=== PATIENT | male | born 1960 | race Caucasian/White ===

== ENCOUNTER 2019-05-20 23:31 | Emergency (ER) | payer BC ==
[~2019-05-20] VITALS: Ht 182.9 cm; Wt 104.0 kg
[~2019-05-20 23:31] MED LIST: APIX5TAB3 PO; LISI10TA4 PO; METO50TA17 PO
[2019-05-21] MEDS ORDERED: LIDOcaine 2% 10ml TOPICAL JELLY (Urojet) MM ONE (00:05)
--- NOTE | 2019-05-21 00:15 | NUR ---
Machado catherter placed using urojet and 18 fr coude, no issues with insertion, draining to gravity
[2019-05-21 01:30] VITALS: BP 128/78
== END 2019-05-21 01:33 | disposition home or self-care (01) ==
LOC: ER 23:32
DX: R31.9 Hematuria, unspecified (principal); R33.9 Retention of urine, unspecified; N40.0 Benign prostatic hyperplasia without lower urinary tract symptoms; Z98.890 Other specified postprocedural states; Z88.0 Allergy status to penicillin; Z79.899 Other long term (current) drug therapy
CPT/HCPCS: 51702; 99284

== ENCOUNTER 2019-05-21 04:02 | Emergency (ER) | payer BC ==
[~2019-05-21] VITALS: Ht 182.9 cm; Wt 104.5 kg
--- NOTE | 2019-05-21 04:25 | NUR ---
D/C PT EXISTING 18 VIET[place]ESE COUDE GAVIRIA ORDERED , ONCE BLADDER IRRIGATION COULD NOT BE INITIATED DUE TO [employer] CLOT FORMATION . GAVIRIA BAG WITH BRIGHT RED BLOOD WITH CLOTS 10ML OF FLUID REMOVED FROM [place] . ATTEMPTED TO PLACE A THREE WAY GAVIRIA FOR CBI 20 VIETNAMESE WITHOUT SUCCESS. ONCE INSERTED NO DRAINAGE OR IRRIGATION OCCURING WHEN REMOVING THE 20 VI[place]ESE, MULTIPLE LARGE STRINGY CLOTS REMOVED FROM THE TIP OF THE 20 VIET[place]ESE GAVIRIA . MD AWARE . WILL REATTEMPT GAVIRIA PLACEMENT ONCE PATIENT CAN BE MEDICATED FOR PAIN AND DISCOMFORT
[2019-05-21] MEDS ORDERED: fentaNYL/PF 50MCG/1 ML 2ML syringe IM ONE (04:30)
[2019-05-21] MEDS ORDERED: LIDOcaine 2% 10ml TOPICAL JELLY (Urojet) MM ONE (04:35)
[2019-05-21 05:16] LABS: BASOPHILS # (AUTO) 0.1 X10'3 (0-0.2); EOSINOPHILS # (AUTO) 0.1 X10'3 (0-0.9)
[2019-05-21 05:19] LABS: BASOPHILS % (AUTO) 0.5 % (0-1); EOSINOPHILS % (AUTO) 0.4 % (0-6); HEMATOCRIT 34.6 % (42.0-52.0); LYMPHOCYTES # (AUTO) 2.2 X10'3 (1.1-4.8); LYMPHOCYTES % (AUTO) 14.4 % (21-51); MEAN CORPUSCULAR HEMOGLOBIN 32.5 PG (27.0-31.0); MEAN CORPUSCULAR HGB CONC 34.8 g/dL (33.0-36.5); MEAN CORPUSCULAR VOLUME 93.2 FL (78-98); MEAN PLATELET VOLUME 6.2 FL (7.4-10.4); MONOCYTES # (AUTO) 0.5 X10'3 (0-0.9); MONOCYTES % (AUTO) 3.5 % (2-12); NEUTROPHILS # (AUTO) 12.1 X10'3 (1.8-7.7); NEUTROPHILS % (AUTO) 81.2 % (42-75); PLATELET COUNT 499 X10'3 (140-440); RED BLOOD COUNT 3.71 X10'6 (4.70-6.10); RED CELL DISTRIBUTION WIDTH 13.3 % (11.5-14.5); WHITE BLOOD COUNT 14.9 X10'3 (4.5-11.0)
[2019-05-21 05:29] LABS: ALANINE AMINOTRANSFERASE 25 U/L (12-78); ALBUMIN 3.6 G/DL (3.4-5.0); ALKALINE PHOSPHATASE 84 IU/L (46-116); ANION GAP 13 (8-16); ASPARTATE AMINO TRANSFERASE 17 U/L (10-37); BILIRUBIN,TOTAL 0.5 MG/DL (0.1-1.0); BLOOD UREA NITROGEN 26 MG/DL (7-18); BUN/CREATININE RATIO 14.5 (5.4-32.0); CALCIUM 9.1 MG/DL (8.5-10.1); CHLORIDE 104 MMOL/L (99-107); CREATININE 1.79 MG/DL (0.60-1.10); GLUCOSE 129 MG/DL (70-104); POTASSIUM 4.7 MMOL/L (3.5-5.1); SODIUM 137 MMOL/L (135-145); TOTAL CARBON DIOXIDE 20.2 MMOL/L (24-32); TOTAL PROTEIN 7.2 G/DL (6.4-8.2); eGFR 39 ML/MIN
--- NOTE | 2019-05-21 05:37 | NUR ---
DR ARTEAGA AT BEDSIDE QUESTIONING PT ABUT HIS UROLOGIST IN [place]. PLAN OF CARE UPDATED CBI STILL IN PROGRESS OUT PUT TOTAL THUS FAR IS 3000 ML OF PEDROZA RED
--- NOTE | 2019-05-21 05:39 | NUR ---
YUSRA UROLOGIST IS DR HARRIS -MARYANNE QUIROZ CONTACTED DR HARRIS TO SPEAK WITH DR ARTEAGA
[2019-05-21 05:43] VITALS: BP 138/85
--- NOTE | 2019-05-21 05:56 | NUR ---
PT STILL HAVING CBI COLOR IS STILL " PEDROZA RED KOOLAIDE" IN APPEARENCE OUT PUT 2000ML FOR A TOTAL THUS FAR OF 5000ML . DR ARTEAGA AWARE
--- NOTE | 2019-05-21 06:02 | NUR ---
PT CURRENTLY RESTING ON BACK . PHONED GIRLFRIEND TO UPDATE HER ON HIS POC AND TRANSPORTATION ARRANGEMENTS PT CURRENTLY STABLE NO COMPLAINTS OF DISCOMFORT ' I JUST WANT THIS TO BE OVER" UPDATED PT WITH THE PLAN OF CARE PT ASKING ABOUT [facility] AND IF THERE IS ANOTHER TRASNPOTATION SERVICE TO [facility] .
[2019-05-21] MEDS ORDERED: ibuprofen 200mg tablet PO ONE (07:30)
== END 2019-05-21 07:59 | disposition left against medical advice (07) ==
LOC: ER 04:03
DX: T83.038A Leakage of other urinary catheter, initial encounter (principal); R31.9 Hematuria, unspecified; N40.0 Benign prostatic hyperplasia without lower urinary tract symptoms; Z98.890 Other specified postprocedural states; Z88.0 Allergy status to penicillin; Z79.899 Other long term (current) drug therapy; Y84.6 Urinary catheterization as the cause of abnormal reaction of the patient, or of later complication, without mention of misadventure at the time of the procedure; Y92.89 Other specified places as the place of occurrence of the external cause
CPT/HCPCS: 36415; 51702; 80053; 85025; 96372; 99284; J3010